=== PATIENT | male | born 1955 | race Caucasian/White ===

== ENCOUNTER 2018-09-25 17:48 | Inpatient (IN) | payer OTHER ==
[~2018-09-25] VITALS: Ht 188 cm; Wt 82.0 kg
--- NOTE | 2018-09-25 18:47 | NUR ---
PT BIB FAMILY C/C TESTICLE PAIN X 1 WK STS WAS AT [facility] [place] WITH IV ATB STS STILL IN PAIN AWAITING FOR DR KAI AREVALO
--- NOTE | 2018-09-25 18:50 | NUR ---
DR BECKFORD AT BEDSIDE TO MICKEY
--- NOTE | 2018-09-25 19:03 | NUR ---
PLEASE ENTER FULL NAMES OF DEAN OF WOMEN/RN Patient data collected by (DEAN OF WOMEN):REGINO STEELE Assessment reviewed and completed by (RN): RYAN TSEIN
--- NOTE | 2018-09-25 19:12 | NUR ---
GOLF BALL MOLDER AT BEDSIDE FOR BLOOD DRAW
[2018-09-25 19:27] LABS: UA SPECIFIC GRAVITY 1.025 (1.005-1.035); microscopic required? YES; urine erythrocyte TRACE (NEGATIVE)
[2018-09-25 19:28] LABS: PLATELET COUNT 192 x10^3mcL (130-400); RED CELL DISTRIBUTION WIDTH 14.4 % (11.5-14.5)
[2018-09-25 19:58] LABS: CALCIUM 8.2 mg/dL (8.5-10.1); CARBON DIOXIDE 25.3 mmol/L (21-32); CHLORIDE SERUM 99 mmol/L (98-107); CREATININE SERUM 1.2 mg/dL (0.7-1.3); GFR1 > 60 mL/min; GLUCOSE SERUM 130 mg/dL (74-106); POTASSIUM SERUM 3.9 mmol/L (3.5-5.1); SODIUM SERUM 134 mmol/L (136-145)
--- NOTE | 2018-09-25 20:02 | NUR ---
PT HAS A FEVER OF 99.9, ICE PACKS PROVIDED. COOLING MEASURES IMPLEMENTED. PT UNDERSTANDS, ALL QUESTIONS AND CONCERNS ANSWERED. WILL RECHECK VITAL SIGNS IN AN HOUR.
[2018-09-25 20:03] LABS: ALBUMIN 3.5 g/dL (3.4-5.0); ALKALINE PHOSPHATASE 94 U/L (46-116); ALT/SGPT 29 U/L (16-63); AST/SGOT 27 U/L (15-37); BILIRUBIN TOTAL 0.67 mg/dL (0.20-1.00); TOTAL PROTEIN, SERUM 7.1 g/dL (6.4-8.2)
[2018-09-25 20:41] LABS: BAND NEUTROPHIL 2 % (0-10); MONOCYTE 6 % (0-7); SEGMENTED NEUTROPHILS 89 % (37-75); rbc morphology (normal/abnorm) NORMAL (NORMAL)
[2018-09-25 20:42] LABS: PLATELET MORPHOLOGY FEW GIANT PLATELET
[2018-09-25 21:33] LABS: AMPHETAMINE QUAL UR NONE DETECTED (See below)
[2018-09-25 21:36] LABS: CHOLESTEROL/HDL RATIO 2.6; PHOSPHOROUS 2.2 mg/dL (2.5-4.9)
[2018-09-25 21:41] LABS: T3 TOTAL 0.93 ng/mL
[2018-09-25 21:44] LABS: FREE T4 1.15 ng/dL (0.76-1.46); T4(THYROXINE) 10.7 ug/dL (4.7-13.3)
--- NOTE | 2018-09-25 21:47 | NUR ---
REPORT GIVEN TO RN IRENE TO ASSUME CARE.
--- NOTE | 2018-09-25 21:58 | NUR ---
PT AAO4, RESP E/U, AAO4. NO DISTRESS NOTED.
[2018-09-25 22:37] VITALS: BP 111/68
--- NOTE | 2018-09-25 22:40 | NUR ---
RECEIVED PT FROM ED VIA TANYA. ORIENTED PT TO ROOM AND SURROUNDINGS. IV NOTED TO LAC PATENT AND INTACT. INSTRUCTED PT ON THE USE OF CALL LIGHT FOR ASSISTANCE. ENDORSED PT TO PRIMARY NURSE IRENE
--- NOTE | 2018-09-25 22:50 | NUR ---
RECIEVED PT FROM MONIQUE RN. PT IN NO ACUTE DISTRESS. ORIENTED TO ROOM. BED IN LOWEST POSITION, 2 SIDE RAILS UP, CALL LIGHT IN REACH. INSTRUCTED TO CALL FOR ASSISTANCE.
[2018-09-26 05:42] VITALS: BP 111/56
[2018-09-26 06:56] LABS: CALCIUM 8.5 mg/dL (8.5-10.1); CARBON DIOXIDE 23.2 mmol/L (21-32); CHLORIDE SERUM 104 mmol/L (98-107); CREATININE SERUM 1.2 mg/dL (0.7-1.3); GFR1 > 60 mL/min; GLUCOSE SERUM 108 mg/dL (74-106); MAGNESIUM 1.9 mg/dL (1.8-2.4); PHOSPHOROUS 2.6 mg/dL (2.5-4.9); POTASSIUM SERUM 3.8 mmol/L (3.5-5.1); SODIUM SERUM 138 mmol/L (136-145)
--- NOTE | 2018-09-26 06:57 | NUR ---
PT ACUTE DISTRESS NOTED. NO ACUTE CHANGES. SCROTUM ELEVATED. WILL ENDORSE TO ONCOMING RN.
[2018-09-26 07:07] LABS: PLATELET COUNT 131 x10^3mcL (130-400); RED CELL DISTRIBUTION WIDTH 13.7 % (11.5-14.5)
--- NOTE | 2018-09-26 07:09 | NUR ---
RECEIVED PT RESTING IN BED. NO ACUTE DISTRESS. AAOX4. RESP EVEN AND UNLABORED ON RA. REDNESS AND SWELLING TO SCROTUM. PT STATES PAIN IS TOLERABLE AT THIS TIME. TOWEL APPLIED UNDER SCROTUM FOR ELEVATION. IVF INFUSING, NO REDNESS OR SWELLING. BED IN LOW POSITION, CALL LIGHT WITHIN REACH. WILL CONTINUE TO MONITOR.
[2018-09-26 07:10] LABS: BASOPHIL % 0 % (0-2)
[2018-09-26 08:57] VITALS: BP 98/51
--- NOTE | 2018-09-26 11:03 | NUR ---
PT RESTING IN BED. NO ACUTE DISTRESS. ASLEEP, AROUSABLE. RESP EVEN AND UNLABORED ON RA. APPEARS COMFORTABLE, NO PAIN NOTED. IV TO LAC, NO REDNESS OR SWELLING. CALL LIGHT WITHIN REACH. WILL CONTINUE TO MONITOR.
--- NOTE | 2018-09-26 14:45 | NUR ---
PT WITH TEMP 101.7. GIVEN TYLENOL ORDERED. COOLING MEASURES IN PLACE. WILL CONTINUE TO MONITOR.
--- NOTE | 2018-09-26 15:44 | NUR ---
TEMP DOWN TO 98.8. PT STATED SCROTAL PAIN IS TOLERABLE, WILL MEDICATE NEEDED. IVF INFUSING, NO REDNESS OR SWELLING. CALL LIGHT WITHIN REACH. WILL CONTINUE TO MONITOR.
--- NOTE | 2018-09-26 18:52 | NUR ---
PT SITTING UP IN BED. NO ACUTE DISTRESS. AAOX4. RESP EVEN AND UNLABORED ON RA. C/O MILD SCROTAL PAIN, TOLERABLE. ELEVATED WITH ROLLED TOWEL. PT REQUESTED TO HAVE IV TO LAC MOVED, IV DC'D WITH CATHETER INTACT. NEW IV STARTED ON RFA 18G, FLUSHED WITH 10 ML NS AND WITH GOOD BLOOD RETURN. FAMILY AT BEDSIDE. BED IN LOW POSITION, CALL LIGHT WITHIN REACH. WILL ENDORSET TO ONCOMING SHIFT.
[2018-09-26 19:29] VITALS: BP 95/57
--- NOTE | 2018-09-26 20:07 | NUR ---
if to right forearm flushed well. good blood return.
[2018-09-26 20:19] VITALS: BP 114/68
--- NOTE | 2018-09-27 00:44 | NUR ---
EYES CLOSED, BREATHING EVEN AND UNLABORED. CALL LIGHT WITHIN EASY REACH.
[2018-09-27 04:59] VITALS: BP 99/52
[2018-09-27 06:23] LABS: BASOPHIL % 0.5 % (0-2)
[2018-09-27 06:37] LABS: CALCIUM 7.8 mg/dL (8.5-10.1); CARBON DIOXIDE 25.3 mmol/L (21-32); CHLORIDE SERUM 105 mmol/L (98-107); GFR1 > 60 mL/min; GLUCOSE SERUM 96 mg/dL (74-106); MAGNESIUM 1.9 mg/dL (1.8-2.4); PHOSPHOROUS 2.3 mg/dL (2.5-4.9); POTASSIUM SERUM 3.7 mmol/L (3.5-5.1); SODIUM SERUM 135 mmol/L (136-145)
--- NOTE | 2018-09-27 06:37 | NUR ---
awake and alert, stated slept well. scrotum kept elevated with pillow case. iv infusing well. iv site free from redness or infiltration.
--- NOTE | 2018-09-27 07:12 | NUR ---
awake and alert, in no acute distress. endorsed to nurse alonso
[2018-09-27 07:19] LABS: PLATELET COUNT 122 x10^3mcL (130-400)
--- NOTE | 2018-09-27 07:26 | NUR ---
PT RESTING IN BED. NO ACUTE DISTRESS. AAOX4. C/O HEADACHE, TOLERABLE. RESP EVEN AND UNLABORED ON RA. IV TO RFA, NO REDNESS OR SWELLING NOTED. SCROTUM WITH SWELLING AND REDNESS, SLIGHTLY WARM TO TOUCH. ELEVATED WITH ROLLED TOWEL. STATES SCROTAL PAIN IS 3/10, TOLERABLE. BED IN LOW POSITION, CALL LIGHT WITHIN REACH. WILL CONTINUE TO MONITOR.
[2018-09-27 10:49] VITALS: BP 91/55
--- NOTE | 2018-09-27 12:18 | NUR ---
PT IN NO ACUTE DISTRESS. ASLEEP, EASILY AROUSABLE. RESP EVEN AND UNLABORED ON RA. NO PAIN NOTED. IVF INFUSING, NO REDNESS OR SWELLING NOTED TO IV SITE. CALL LIGHT WITHIN REACH. WILL CONTINUE TO MONITOR.
[2018-09-27 18:28] VITALS: BP 105/59; BP 122/80
--- NOTE | 2018-09-27 18:54 | NUR ---
PT WITH ELEVATED TEMP 102.6. GIVEN TYLENOL PO AND COOLING MEASURES IN PLACE. PT AAOX4. RESP EVEN AND UNLABORED ON RA. SCROTUM SWELLING AND REDNESS, ELEVATED WITH ROLLED TOWEL. IVF INFUSING, NO REDNESS OR SWELLING. CALL LIGHT WITHIN REACH. BED IN LOW POSITION. WILL ENDORSE TO ONCOMING SHIFT.
--- NOTE | 2018-09-27 20:21 | NUR ---
PT CURRENTLY RESTING IN BED, NO ACUTE DISTRESS. A/O X4. NO TELE, MED/SURG. DENIES CHEST PAIN. PULSES PALPABLE IN ALL EXTREMITIES. LUNG SOUNDS CTA BILATERALLY, DENIES SOB. BOWEL SOUNDS ACTIVE, LAST BM 09/26/18. VOIDING WELL. SCROTAL REDNESS AND SWELLING NOTED. AMBULATORY. PT STATES PAIN ONLY WHILE MOVING. IV PATENT AND INTACT. BED IN LOWEST POSITION, SIDE RAILS UP X2, CALL LIGHT WIHTIN REACH. WILL CONTINUE TO MONITOR.
[2018-09-27 21:43] VITALS: BP 91/59
--- NOTE | 2018-09-28 00:43 | NUR ---
PT CURRENTLY RESTING IN BED, NO ACUTE DISTRESS. WILL CONTINUE TO MONITOR.
[2018-09-28 05:30] VITALS: BP 101/57
--- NOTE | 2018-09-28 06:25 | NUR ---
PT SLEPT PERIODICALLY THROUGHOUT NIGHT, NO ACUTE DISTRESS. ALL NEEDS MET AND ATTENDED TO. NO SIGNIFICANT CHANGES. IV PATENT AND INTACT. BED IN LOWEST POSITION, SIDE RAILS UP X2, CALL LIGHT WITHIN REACH. WILL ENDORSE CARE TO ONCOMING NURSE.
[2018-09-28 07:35] LABS: CALCIUM 7.8 mg/dL (8.5-10.1); CARBON DIOXIDE 23.6 mmol/L (21-32); CHLORIDE SERUM 107 mmol/L (98-107); CREATININE SERUM 0.9 mg/dL (0.7-1.3); GFR1 > 60 mL/min; GLUCOSE SERUM 93 mg/dL (74-106); MAGNESIUM 1.9 mg/dL (1.8-2.4); PHOSPHOROUS 3.3 mg/dL (2.5-4.9); POTASSIUM SERUM 3.9 mmol/L (3.5-5.1); SODIUM SERUM 138 mmol/L (136-145)
[2018-09-28 07:45] LABS: BASOPHIL % 0.2 % (0-2); PLATELET COUNT 122 x10^3mcL (130-400); RED CELL DISTRIBUTION WIDTH 13.3 % (11.5-14.5)
[2018-09-28 09:00] VITALS: BP 104/60
--- NOTE | 2018-09-28 09:16 | NUR ---
PT ON BED, AWAKE, ALERT, AND ORIENTED. HAS NO COMPLAINT OF SOB, OR DIZZINESS. PT DOES COMPLAIN OF SCROTAL PAIN WHEN AMBULATING. REDNESS AND SWELLING NOTED ON THE SCROTAL AREA. ELEVATED WITH TOWEL. CLEAR DEANNA LUNG FIELD, SYMMETRICAL CHEST EXPANSION AND UNLABORED. ACTIVE BOWEL SOUNDS NOTED, NON DISTENDED ABDOMEN. SKIN INTACT. SIDE RAILS UP, CALL LIGHT WITHIN REACH, WILL CONTINUE TO MONITOR
--- NOTE | 2018-09-28 14:50 | NUR ---
RAVIN ARCHULETA WAS ABLE TO TALK TO THE PT AND PT'S FAMILY MEMBER REGARDING THE PLAN OF CARE. WILL CONTINUE TO MONITOR
[2018-09-28 17:40] VITALS: BP 112/67
--- NOTE | 2018-09-28 19:44 | NUR ---
SHIFT REASSESSMENT DONE.PATIENT ALERT AND ORIENTED.NOT IN RESP DISTRESS.AMBULATORY.USING URINAL AT BEDSIDE.NS AT 120 CC/ HOUR.IV SITE RFA INTACT AND PATENT.MEDSURG PATIENT.SWELLING AND REDNESS SCROTUM.CALL LIGHT IN REACH.
--- NOTE | 2018-09-28 19:45 | NUR ---
PATIENT IV WAS DC AT 1845 ORDERED,CHARGE NURSE SETH MADE AWARE.SHE IS STILL HERE GIVING LATE REPORT,GEREMIAS ALSO AWARE.REMINDED PATIENT HEPLOCK WILL STAY.
--- NOTE | 2018-09-28 21:25 | NUR ---
PM MEDS GIVEN,ONLY COLACE,TYLENOL PULLED OUT FROM PEXIS,NOT DUE,WAS JUST GIVEN BEFORE I CAME.WILL GIVE WHEN IT IS TIME,JUST MILD PAIN ON IN HIS SCROTAL AREA.
[2018-09-28 21:51] VITALS: BP 103/60
--- NOTE | 2018-09-28 22:40 | NUR ---
PATIENT C/O ITCHING ON HIS BACK,SOME REDNESS ALMOST PETECHIA.WILL NOTIFY DR MCARTHUR.
--- NOTE | 2018-09-28 22:43 | NUR ---
DR MCARTHUR MADE AWARE.SHE WILL ORDER MED.
--- NOTE | 2018-09-28 22:52 | NUR ---
GIVEN BENADRYL,CAPSULE,JUST PUT LOTION ON HIS BACK.
--- NOTE | 2018-09-29 02:01 | NUR ---
CHECKED AT THIS TIME,ASLEEP.CALL LIGHT IN REACH.
[2018-09-29 06:13] VITALS: BP 106/59
--- NOTE | 2018-09-29 06:19 | NUR ---
I AND O MEASURED.NO DISTRESS THIS SHIFT.SKIN REDNESS ON HIS BACK,SAYS MAYBE HE NEED A SHOWER.WILL ENDORSE TO NEXT SHIFT.
--- NOTE | 2018-09-29 09:46 | NUR ---
PT ON BED, AWAKE, ALERT, AND ORIENTED X4. HAS NO COMPLAINT OF PAIN, SOB, OR DIZZINESS. RESPONDS WELL TO QUESTION AND ANSWER. CLEAR DEANNA LUNG FIELD, SYMMETRICAL CHEST EXPANSION AND UNLABORED. ACTIVE BOWEL SOUNDS NOTED. REDNESS AND SWELLING NOTED ON THE SCROTAL AREA. PT STATED IT LOOKS A LOT BETTER NOW THEN BEFORE. WRINKLING NOTED ON THE SCROTAL AREA. SIDE RAILS UP, CALL LIGHT WITHIN REACH, WILL CONTINUE TO MONITOR
[2018-09-29 09:52] VITALS: BP 95/57
[2018-09-29] MEDS ORDERED: LEVOFLOXACIN500 M1 PO (12:44)
[2018-09-29 13:06] VITALS: BP 95/57
--- NOTE | 2018-09-29 13:46 | NUR ---
PT HAS BEEN D/C. PT TEACHING DONE.
== END 2018-09-29 13:46 | disposition home or self-care (01) | DRG 871 ==
LOC: ED 17:48 → MU 21:04
PROVIDERS: Emergency Medicine; ADMIT Family Medicine
DX: A41.9 Sepsis, unspecified organism (principal); N17.0 Acute kidney failure with tubular necrosis; E87.1 Hypo-osmolality and hyponatremia; J98.11 Atelectasis; N45.3 Epididymo-orchitis; R80.9 Proteinuria, unspecified; E83.39 Other disorders of phosphorus metabolism; Z68.23 Body mass index [BMI] 23.0-23.9, adult; Z85.820 Personal history of malignant melanoma of skin; D64.9 Anemia, unspecified; D69.6 Thrombocytopenia, unspecified
CPT/HCPCS: 84439; J0744; J1956; J7030; Q0092; Q0163